=== PATIENT | male | born 1985 | race Caucasian/White ===

== ENCOUNTER 2016-03-28 15:20 | Emergency (ER) | payer SELFPAY ==
[~2016-03-28] VITALS: Ht 177.8 cm; Wt 74.8 kg
[2016-03-28 21:45] VITALS: BP 138/79
== END 2016-03-28 21:45 | disposition home or self-care (01) ==
LOC: ER 15:24
DX: F10.129 Alcohol abuse with intoxication, unspecified (principal)
CPT/HCPCS: 99283; A4606; Z7610